=== PATIENT | male | born 1930 | race Caucasian/White ===

== ENCOUNTER 2017-02-14 17:01 | Emergency (ER) | payer MEDICARE ==
[2017-02-14 17:08] VITALS: BMI 34.4
[2017-02-14 17:11] VITALS: BP 127/83; PULSE 98; RESP 17; TEMP 98.9; O2SAT 97
[2017-02-14] MEDS ORDERED: Oxycodone/Acetaminophen 5/325 mg Tab PO STA (17:22)
--- NOTE | 2017-02-14 18:07 | ED PDOC ---
Arrival/HPI - General Chief Complaint: Upper Extremity Problem/Injury Time Seen by Provider: 02/14/17 17:12 Historian: Patient - History of Present Illness Narrative History of Present Illness (Text): 02/14/17 17:58 86yo male with history of multiple co morbidities present with complaint of right elbow pain with swelling since yesterday. states pain radiates to his forearm and upper arm. States pain is worse with flexion of elbow. He took Tylenol at home without relieve. He denies trauma, focal weakness, fever, chills , redness, any other complaint. Past Medical History - Provider Review Nursing Documentation Reviewed: Yes - Infectious Disease Hx of Infectious Diseases: None - Tetanus Immunization Tetanus Immunization: Unknown - Cardiac Hx Hypertension: Yes - Hematological/Oncological Hx Blood Transfusions: No Hx Blood Transfusion Reaction: No - Musculoskeletal/Rheumatological Hx Musculoskeletal Disorders: Yes - Psychiatric Hx Depression: No Hx Emotional Abuse: No Hx Physical Abuse: No Hx Substance Use: No - Past Surgical History Past Surgical History: No Previous - Anesthesia Hx Anesthesia Reactions: No Hx Malignant Hyperthermia: No - Suicidal Assessment Feels Threatened In Home Enviroment: No Family/Social History - Physician Review Nursing Documentation Reviewed: Yes Family/Social History: Unknown Family HX Smoking Status: Unknown If Ever Smoked Hx Alcohol Use: No Hx Substance Use: No Allergies/Home Meds Allergies/Adverse Reactions: Allergies No Known Allergies Allergy (Unverified 02/14/17 17:08) Home Medications: Home Meds Medication Instructions Recorded Confirmed Alprazolam 0.25 mg PO HS 02/09/13 03/01/14 Atorvastatin Calcium [Lipitor] 10 mg PO DAILY 02/09/13 03/01/14 Glimepiride [Amaryl] 2 mg PO DAILY 02/09/13 03/01/14 Lansoprazole [Prevacid] 15 mg PO DAILY 02/09/13 03/01/14 Metformin Hydrochloride [Metformin] 500 mg PO BID 02/09/13 03/01/14 Sotalol Hydrochloride [Sotalol] 40 mg PO BID 02/09/13 03/01/14 Warfarin [Coumadin] 2 mg PO DAILY 02/09/13 03/01/14 Hydrochlorothiazide/Valsarta 1 tab PO DAILY 03/01/14 03/01/14 [Diovan Hct 12.5 mg-80 mg] Review of Systems - Physician Review All systems were reviewed & negative as marked: Yes - Review of Systems Constitutional: Normal Eyes: Normal ENT: Normal Respiratory: Normal Cardiovascular: Normal Gastrointestinal: Normal Genitourinary Male: Normal Musculoskeletal: Arthralgias (right elbow) Skin: Normal Neurological: Normal Endocrine: Normal Hemo/Lymphatic: Normal Psychiatric: Normal Physical Exam Vital Signs Reviewed: Yes Vital Signs Temp Pulse Resp BP Pulse Ox 02/14/17 17:10 98.9 F 98 H 17 127/83 97 Temperature: Afebrile Blood Pressure: Normal Pulse: Regular Respiratory Rate: Normal Appearance: Positive for: Well-Appearing, Non-Toxic, Comfortable Pain Distress: None Mental Status: Positive for: Alert and Oriented X 3 - Systems Exam Head: Present: Atraumatic, Normocephalic Pupils: Present: PERRL Extroacular Muscles: Present: EOMI Conjunctiva: Present: Normal Mouth: Present: Moist Mucous Membranes Neck: Present: Normal Range of Motion Respiratory/Chest: Present: Clear to Auscultation, Good Air Exchange. No: Respiratory Distress, Accessory Muscle Use Cardiovascular: Present: Regular Rate and Rhythm, Normal S1, S2. No: Murmurs Abdomen: Present: Normal Bowel Sounds. No: Tenderness, Distention, Peritoneal Signs Back: Present: Normal Inspection Upper Extremity: Present: NORMAL PULSES, Tenderness (right elbow), Swelling ( Mild swelling of right elbow noted), Neurovascularly Intact, Capillary Refill < 2s. No: Cyanosis, Edema, Normal ROM (Limited with flexion secondary to pain), Erythema, Temperature Abnormalties, Deformity Lower Extremity: Present: Normal Inspection. No: Edema Neurological: Present: GCS=15, CN II-XII Intact, Speech Normal Skin: Present: Warm, Dry, Normal Color. No: Rashes Psychiatric: Present: Alert, Oriented x 3, Normal Insight, Normal Concentration Medical Decision Making ED Course and Treatment: 02/14/17 18:18 right elbow xray - Calcification noted. No acute fracture/dislocation Result was DW the pt. Arm was placed on a sling. Referred to ortho. Rx of Tramadol given. Advised TRT ED for any new or worsening symptoms - RAD Interpretation Radiology Orders: 02/14/17 17:21 ELBOW RIGHT 3 VIEWS ROUTINE [RAD] Stat - Medication Orders Current Medication Orders: Discontinued Medications Oxycodone/Acetaminophen (Percocet 5/325 Mg Tab) 1 tab PO STAT STA Stop: 02/14/17 17:23 Last Admin: 02/14/17 17:54 Dose: 1 tab Disposition/Present on Arrival - Present on Arrival Any Indicators Present on Arrival: No History of DVT/PE: No History of Uncontrolled Diabetes: No Urinary Catheter: No History of Decub. Ulcer: No History Surgical Site Infection Following: None - Disposition Have Diagnosis and Disposition been Completed?: Yes Diagnosis: Elbow pain Disposition: HOME/ ROUTINE Disposition Time: 18:20 Patient Plan: Discharge Condition: STABLE Discharge Instructions (ExitCare): Osteoarthritis (ED), Arthralgia (ED) Additional Instructions: Follow up with your doctor/orthopedist Return to ED for any new or worsening symptoms Prescriptions: oxyCODONE/Acetaminophen [Percocet 5/325 mg Tab] 1 ea PO Q6 #7 tab Referrals: Rom Cam MD [Primary Care Provider] - Follow up with primary Lesvia Jimenez MD [Staff Provider] - Follow up with primary
--- NOTE | 2017-02-15 08:22 | RAD ---
PROCEDURE: Radiographs of the right elbow. HISTORY: elbow pain COMPARISON: No prior. FINDINGS: BONES: Normal. No fracture. JOINTS: Normal. No osteoarthritis. SOFT TISSUES: Normal. JOINT EFFUSION: There is a joint effusion with elevation of the fat pads. OTHER FINDINGS: None. IMPRESSION: Joint effusion with no obvious fracture.
== END 2017-02-14 18:35 | disposition home or self-care (01) ==
LOC: ED 17:01
DX: M25.521 Pain in right elbow (principal)

== ENCOUNTER 2017-09-11 23:39 | Emergency (ER) | payer MEDICARE ==
[2017-09-11 23:39] VITALS: BMI 34.4
[2017-09-11 23:58] VITALS: BP 132/98; PULSE 82; RESP 18; TEMP 98; O2SAT 99
[2017-09-12] MEDS ORDERED: Petrolatum-Mineral Oil Oint (100gm) TOP STA (00:17)
--- NOTE | 2017-09-12 00:17 | ED PDOC ---
Arrival/HPI - General Chief Complaint: Abnormal Skin Integrity Time Seen by Provider: 09/12/17 00:13 Historian: Patient, Spouse - History of Present Illness Narrative History of Present Illness (Text): 09/12/17 00:14 This 86 yo male with pmh dm, htn, presents to this ED c/o rash x 3 days. Patient stated rash is pruritic. Denies other complains. Time/Duration: Other (3 days) Context: Home Past Medical History - Provider Review Nursing Documentation Reviewed: Yes - Infectious Disease Hx of Infectious Diseases: None - Tetanus Immunization Tetanus Immunization: Unknown - Cardiac Hx Hypertension: Yes - Hematological/Oncological Hx Blood Transfusions: No Hx Blood Transfusion Reaction: No - Musculoskeletal/Rheumatological Hx Musculoskeletal Disorders: Yes - Psychiatric Hx Depression: No Hx Emotional Abuse: No Hx Physical Abuse: No Hx Substance Use: No - Past Surgical History Past Surgical History: No Previous - Anesthesia Hx Anesthesia Reactions: No Hx Malignant Hyperthermia: No - Suicidal Assessment Feels Threatened In Home Enviroment: No Family/Social History - Physician Review Nursing Documentation Reviewed: Yes Family/Social History: Other (noncontributory) Smoking Status: Unknown If Ever Smoked Hx Alcohol Use: No Hx Substance Use: No Allergies/Home Meds Allergies/Adverse Reactions: Allergies No Known Allergies Allergy (Unverified 02/14/17 17:08) Home Medications: Home Meds Medication Instructions Recorded Confirmed Atorvastatin [Lipitor] 10 mg PO QPM 02/14/17 09/12/17 Fluticasone Propionate [Flovent 50 mcg IH 02/14/17 09/12/17 Diskus] Glimepiride [amaRYL] 2 mg PO BID 02/14/17 09/12/17 Ranitidine HCl [Zantac 300] 300 mg PO DAILY 02/14/17 09/12/17 Sotalol HCl [Sotalol AF] 40 mg PO BID 02/14/17 09/12/17 Temazepam [Restoril] 30 mg PO HS 02/14/17 09/12/17 Valsartan [Diovan] 80 mg PO QPM 02/14/17 09/12/17 Warfarin [Coumadin] 2 mg PO QPM 02/14/17 09/12/17 metFORMIN [glucOPHAGE] 500 mg PO BID 02/14/17 09/12/17 Review of Systems - Review of Systems Constitutional: Normal. absent: Fatigue, Weight Change, Fevers Eyes: Normal ENT: Normal Respiratory: Normal. absent: SOB, Cough Cardiovascular: Normal. absent: Chest Pain Gastrointestinal: Normal. absent: Abdominal Pain, Nausea, Vomiting Genitourinary Male: Normal Musculoskeletal: Normal Skin: Rash, Pruritis. absent: Skin Lesions, Laceration, Abscess, Ulcer, Cellulitis Neurological: Normal. absent: Headache, Dizziness Endocrine: Normal Hemo/Lymphatic: Normal Psychiatric: Normal Physical Exam Vital Signs Temp Pulse Resp BP Pulse Ox 09/11/17 23:56 98 F 82 18 132/98 H 99 Temperature: Afebrile Blood Pressure: Normal Pulse: Regular Respiratory Rate: Normal Appearance: Positive for: Well-Appearing, Non-Toxic, Comfortable Pain Distress: None Mental Status: Positive for: Alert and Oriented X 3 - Systems Exam Head: Present: Atraumatic, Normocephalic Pupils: Present: PERRL Extroacular Muscles: Present: EOMI Conjunctiva: Present: Normal Mouth: Present: Moist Mucous Membranes Neck: Present: Normal Range of Motion Respiratory/Chest: Present: Clear to Auscultation, Good Air Exchange. No: Respiratory Distress, Accessory Muscle Use, Wheezes, Retracting, Rhonchi Cardiovascular: Present: Regular Rate and Rhythm, Normal S1, S2. No: Murmurs Abdomen: Present: Tenderness, Normal Bowel Sounds. No: Distention, Peritoneal Signs Upper Extremity: Present: Normal Inspection, Normal ROM Lower Extremity: Present: Normal Inspection, Normal ROM Neurological: Present: GCS=15, CN II-XII Intact, Speech Normal, Motor Func Grossly Intact, Normal Sensory Function, Normal Cerebellar Funct, Gait Normal Skin: Present: Warm, Dry, Normal Color. No: Rashes Psychiatric: Present: Alert, Oriented x 3, Normal Insight Medical Decision Making ED Course and Treatment: 09/12/17 00:40 Re-evaluation. Patient feels better. Discussed results and plan with patient who expresses understanding. All questions answered and there is agreement with the plan to discharge home with instructions. Patient stable for discharge. Return if symptoms persist or worsen. Re-evaluation Time: 00:40 Reassessment Condition: Re-examined, Improved Disposition/Present on Arrival - Present on Arrival Any Indicators Present on Arrival: No History of DVT/PE: No History of Uncontrolled Diabetes: No Urinary Catheter: No History of Decub. Ulcer: No History Surgical Site Infection Following: None - Disposition Have Diagnosis and Disposition been Completed?: Yes Diagnosis: Rash and nonspecific skin eruption Disposition: HOME/ ROUTINE Disposition Time: 00:45 Patient Plan: Discharge Condition: GOOD Discharge Instructions (ExitCare): Acute Rash (ED) Additional Instructions: Call private doctor for follow up visit in 1-2 days. Take medication as instructed. Return to emergency if symptoms worsen. Take over the counter Zyrtec for itching once a day. Apply Aquaphor intensive healing ointment over you body once a day after shower. Return to emergency if rash worsen. Apply topical antibiotic on your neck rash 2 time a day Prescriptions: Nystatin/Triamcinolone Acetoni [Mycolog II OINT] 1 applic TOP TID #1 tube Referrals: Rom Cam MD [Primary Care Provider] - Follow up with primary
== END 2017-09-12 00:56 | disposition home or self-care (01) ==
LOC: ED 23:39
DX: R21 Rash and other nonspecific skin eruption (principal); E11.9 Type 2 diabetes mellitus without complications; I10 Essential (primary) hypertension
CPT/HCPCS: 96372; 99282; J1100

== ENCOUNTER 2018-04-30 14:47 | Emergency (ER) | payer MEDICARE ==
[2018-04-30 15:33] VITALS: BMI 39.6
--- NOTE | 2018-04-30 16:15 | ED PDOC ---
Arrival/HPI - General Chief Complaint: Trauma Time Seen by Provider: 04/30/18 15:05 Historian: Patient - History of Present Illness Narrative History of Present Illness (Text): 04/30/18 15:48 87 year old male, with past medical history of hypertension, hyperlipidemia, diabetes, and Atrial fibrillation on Coumadin, presents to the Emergency Department accompanied by complaining of left neck, left shoulder and lower back pain s/p trip and fall on Wednesday. Patient states he was walking to the bathroom at 3am Wednesday when he tripped over his lal and fell to the ground without any immediate injuries. Patient denies hitting his head or loss of consciousness. Upon finding patient on the floor half an hour later, called EMS for evaluation. Patient informed feeling fine at the time and signed refusal for medical attention to EMS. However, the next day , patient experienced left neck discomfort radiating to his left shoulder, and lower back discomfort and bruising. Patient informs taking Tylenol with mild improvement to symptoms. Patient additionally informs black stool ongoing for past 3 days prompting him to present to the Emergency Department for medical evaluation. Patient denies drinking alcohol or history of falls in the past. Patient denies any fever, chills, nausea, vomiting, diarrhea, abdominal pain, chest pain, shortness of breath or any other complaints. PMD: Dr. Mcmahon Time/Duration: < week (3am on Wednesday) Symptom Onset: Gradual Symptom Course: Unchanged Quality: Aching Activities at Onset: Light Context: Home Past Medical History - Provider Review Nursing Documentation Reviewed: Yes - Infectious Disease Hx of Infectious Diseases: None - Tetanus Immunization Tetanus Immunization: Unknown - Cardiac Hx Hypertension: Yes - Endocrine/Metabolic Hx Diabetes Mellitus Type 2: Yes - Hematological/Oncological Hx Blood Transfusions: No Hx Blood Transfusion Reaction: No - Musculoskeletal/Rheumatological Hx Musculoskeletal Disorders: Yes Hx Falls: Yes - Psychiatric Hx Depression: No Hx Emotional Abuse: No Hx Physical Abuse: No Hx Substance Use: No - Past Surgical History Past Surgical History: No Previous - Anesthesia Hx Anesthesia Reactions: No Hx Malignant Hyperthermia: No - Suicidal Assessment Feels Threatened In Home Enviroment: No Family/Social History - Physician Review Nursing Documentation Reviewed: Yes Family/Social History: No Known Family HX Smoking Status: Never Smoked Hx Alcohol Use: No Hx Substance Use: No Allergies/Home Meds Allergies/Adverse Reactions: Allergies No Known Allergies Allergy (Unverified 04/30/18 15:29) Home Medications: Home Meds Medication Instructions Recorded Confirmed Atorvastatin [Lipitor] 10 mg PO QPM 02/14/17 04/30/18 Fluticasone Propionate [Flovent 50 mcg IH HS 02/14/17 04/30/18 Diskus] Glimepiride [amaRYL] 2 mg PO BID 02/14/17 04/30/18 Ranitidine HCl [Zantac 300] 300 mg PO DAILY 02/14/17 04/30/18 Sotalol HCl [Sotalol AF] 40 mg PO BID 02/14/17 04/30/18 Temazepam [Restoril] 30 mg PO HS 02/14/17 04/30/18 Valsartan [Diovan] 80 mg PO QPM 02/14/17 04/30/18 Warfarin [Coumadin] 2 mg PO QPM 02/14/17 04/30/18 metFORMIN [glucOPHAGE] 500 mg PO BID 02/14/17 04/30/18 Review of Systems - Physician Review All systems were reviewed & negative as marked: Yes - Review of Systems Constitutional: absent: Fevers Respiratory: absent: SOB Cardiovascular: absent: Chest Pain Gastrointestinal: absent: Abdominal Pain, Diarrhea, Nausea, Vomiting Musculoskeletal: Other (left neck, shoulder and lower back discomfort ) Skin: Other (ecchymosis to lower back ) Neurological: absent: Headache, Dizziness Physical Exam Vital Signs Reviewed: Yes Vital Signs Temp Pulse Resp BP Pulse Ox 04/30/18 19:55 98.4 F 65 14 163/73 H 97 04/30/18 19:10 98.4 F 65 14 163/73 H 97 04/30/18 18:27 62 20 166/72 H 98 04/30/18 14:47 98.2 F 62 18 173/87 H 98 Temperature: Afebrile Blood Pressure: Hypertensive Pulse: Regular Respiratory Rate: Normal Appearance: Positive for: Well-Appearing, Non-Toxic, Comfortable Pain Distress: None Mental Status: Positive for: Alert and Oriented X 3 - Systems Exam Head: Present: Atraumatic, Normocephalic Pupils: Present: PERRL Extroacular Muscles: Present: EOMI Conjunctiva: Present: Normal Neck: Present: Normal Range of Motion Respiratory/Chest: Present: Clear to Auscultation, Good Air Exchange. No: Respiratory Distress, Accessory Muscle Use Cardiovascular: Present: Regular Rate and Rhythm, Normal S1, S2. No: Murmurs Abdomen: No: Tenderness, Distention, Peritoneal Signs Rectal: Present: Other (Guaiac negative) Back: Present: Normal Inspection. No: CVA Tenderness Upper Extremity: Present: Tenderness (left shoulder pinpoint tenderness), Neurovascularly Intact. No: Cyanosis, Edema Lower Extremity: Present: Normal Inspection, NORMAL PULSES, Normal ROM, Neurovascularly Intact. No: Edema Neurological: Present: GCS=15, CN II-XII Intact, Speech Normal, Motor Func Grossly Intact, Memory Normal Skin: Present: Warm, Dry, Normal Color, Other (left flank ecchymosis). No: Rashes Psychiatric: Present: Alert, Oriented x 3, Normal Insight, Normal Concentration Medical Decision Making ED Course and Treatment: 04/30/18 15:44 Impression: 87 year old male presents to the Emergency Department for left neck , left shoulder and lower back discomfort s/p fall. Marked ecchymosis to L flank. Differential Diagnosis included but are not limited to: fracture Plan: -- Blood type and screen -- CT of cervical spine -- Ct of head -- Ct of Abdomen/pelvis -- labs -- Chest X-ray -- left shoulder x-ray -- Reassess and disposition Prior Visits: Notes and results from previous visits were reviewed. Progress Notes: 04/30/18 16:17 Guaic Negative 19:[address] head unremarkable. Xray unremarkable. CT Neck unremarkable. 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 CK unremarkable. INR therapeutic. Given INR elevation from 1.7 to 2.0 as well as pt not ambulating well may need obs status. Appreciate consult w/ Pts Primary: Endorsed likely obs status: who will see in AM. Pt seeking to AMA 04/30/18 19:43 Patient states he is aware of his 5+ cm abdominal aortic aneurysm and is an old finding. Despite recommendation to stay overnight for observation, patient is refusing further medical care. The patient is choosing to leave against medical advice. I have personally explained to the patient that choosing to do so may result in permanent bodily harm or . I have discussed at great length that without further evaluation and monitoring there may be unforeseen circumstances and/or deterioration causing permanent bodily harm or as a result of their choice. The patient is alert, oriented, and shows the mental capacity to make clear decisions regarding the patients health care at this time. The patient continues to wish to leave against medical advice. In light of the patients decision to leave against medical advice, the importance of follow-up has been discussed. The patient has been advised that they should return to the emergency room immediately if they change their mind at any time, or if their condition begins to change or worsen in any way. 04/30/18 20:12 04/30/18 20:13 - Lab Interpretations Lab Results: 04/30/18 16:00 04/30/18 16:00 Lab Results 04/30/18 16:30: Blood Type Confirm O POSITIVE 04/30/18 16:00: Lactic Acid 2.0 04/30/18 16:00: Sodium 142, Potassium 4.2, Chloride 103, Carbon Dioxide 28, Anion Gap 16, BUN 48 H, Creatinine 2.0 H, Est GFR ( Amer) 38, Est GFR ( Non-Af Amer) 32, Random Glucose 173 H, Calcium 9.3, Phosphorus 2.4 L, Magnesium 2.0, Total Bilirubin 0.5, AST 29, ALT 36, Alkaline Phosphatase 91, Total Creatine Kinase 73, Total Protein 7.0, Albumin 3.7, Globulin 3.3, Albumin/ Globulin Ratio 1.1 04/30/18 16:00: PT 29.5 H, INR 2.54, APTT 39.3 H 04/30/18 16:00: WBC 8.7, RBC 4.08, Hgb 12.1 L D, Hct 36.7 L, MCV 90.0 D, MCH 29.7, MCHC 33.0, RDW 14.4, Plt Count 225, MPV 9.3, Gran % 76.6 H, Lymph % (Auto ) 9.7 L, [place] % (Auto) 10.3 H, Eos % (Auto) 3.2, Baso % (Auto) 0.2, Gran # 6.66 H, Lymph # (Auto) 0.8 L, [place] # (Auto) 0.9 H, Eos # (Auto) 0.3, Baso # (Auto) 0.02 04/30/18 16:00: Blood Type O POSITIVE, Antibody Screen Negative, BBK History Checked No verified bt - RAD Interpretation Radiology Orders: 04/30/18 15:46 CHEST TWO VIEWS (PA/LAT) [RAD] Stat 04/30/18 15:48 CERVICAL SPINE W/O CONTRAST [CT] Stat HEAD W/O CONTRAST [CT] Stat 04/30/18 15:50 SHOULDER LEFT [RAD] Stat 04/30/18 16:59 ABD & PELVIS W/O PO OR IV CONT [CT] Stat - Medication Orders Current Medication Orders: Discontinued Medications Acetaminophen (Tylenol 325mg Tab) 650 mg PO STAT STA Stop: 04/30/18 19:42 Last Admin: 04/30/18 19:42 Dose: 650 mg MAR Pain/Vitals Document 04/30/18 19:42 RG (Rec: 04/30/18 19:51 RG [facility] [id number]) Pain Reassessment Is This A Pain ReAssessment? Yes Sleep Is patient sleeping during reassessment? No Presence of Pain Presence of Pain Yes Pain Scale Used Pain Scale Used Numeric Location Left, Right or Bilateral Left Pain Location Body Site Neck Description Constant Intensity 5 Scale Used Numeric Pain Behavior Rubbing Site Facial Grimacing Oxycodone/Acetaminophen (Percocet 2.5/325 Mg Tab) 1 tab PO STAT STA Stop: 04/30/18 17:19 Last Admin: 04/30/18 17:25 Dose: 1 tab - Scribe Statement The provider has reviewed the documentation as recorded by the Scribe Roberta Lynn. All medical record entries made by the Scribe were at my direction and personally dictated by me. I have reviewed the chart and agree that the record accurately reflects my personal performance of the history, physical exam, medical decision making, and the department course for this patient. I have also personally directed, reviewed, and agree with the discharge instructions and disposition. Disposition/Present on Arrival - Present on Arrival Any Indicators Present on Arrival: No History of DVT/PE: No History of Uncontrolled Diabetes: No Urinary Catheter: No History of Decub. Ulcer: No History Surgical Site Infection Following: None - Disposition Have Diagnosis and Disposition been Completed?: Yes Diagnosis: Fall Disposition: AGAINST MEDICAL ADVICE Disposition Time: 19:17 Condition: FAIR Referrals: Rom Cam MD [Primary Care Provider] - Follow up with primary Forms: [employer] ([place])
[2018-04-30 16:47] LABS: BASO # 0.02 K/mm3 (0.0-2.0); BASO % 0.2 % (0.0-3.0); EOS # 0.3 (0.0-0.7); EOS % 3.2 % (1.5-5.0); GRAN # 6.66 (1.4-6.5); GRAN % 76.6 % (50.0-68.0); HEMOGLOBIN 12.1 g/dL (14.0-18.0); INR 2.54; LYMPH # 0.8 (1.2-3.4); LYMPH % 9.7 % (22.0-35.0); MEAN CORPUSCULAR HEMOGLOBIN 29.7 pg (25.0-35.0); MEAN PLATELET VOLUME 9.3 fl (7.0-11.0); MONO # 0.9 (0.1-0.6); MONO % 10.3 % (1.0-6.0); PARTIAL THROMBOPLASTIN TIME 39.3 Seconds (25.1-36.5); PROTHROMBIN TIME 29.5 SECONDS (9.4-12.5); RBC 4.08 10^6/uL (3.5-6.1); RED CELL DISTRIBUTION WIDTH 14.4 % (11.5-14.5); WHITE BLOOD COUNT 8.7 10^3/ul (4.5-11.0)
[2018-04-30 16:52] LABS: ALB/GLOB RATIO 1.1 (1.1-1.8); ALBUMIN 3.7 g/dL (3.0-4.8); CALCIUM 9.3 mg/dL (8.4-10.5)
[2018-04-30] MEDS ORDERED: Oxycodone/Acetaminophen 2.5/325 mg Tab PO STA (17:18)
--- NOTE | 2018-04-30 18:05 | CT ---
Date of service: 04/30/2018 PROCEDURE: CT HEAD WITHOUT CONTRAST. HISTORY: Status post fall in a patient on Coumadin. COMPARISON: None available. TECHNIQUE: Axial computed tomography images were obtained through the head/brain without intravenous contrast. Radiation dose: Total exam DLP = 951.7 mGy-cm. This CT exam was performed using one or more of the following dose reduction techniques: Automated exposure control, adjustment of the mA and/or kV according to patient size, and/or use of iterative reconstruction technique. FINDINGS: HEMORRHAGE: No acute parenchymal, subarachnoid or extra-axial hemorrhage. BRAIN: Mild moderate diffuse/confluent chronic periventricular white matter ischemic changes seen extending peripherally into the deep and subcortical white matter both cerebral hemispheres. There are also a few scattered chronic appearing bilateral basal nuclei lacunar type infarcts. . No obvious parenchymal nor extra-axial mass or collection seen on this noncontrast study. Moderate to fairly significant generalized volume loss. Vascular calcifications both carotid siphons and vertebral arteries. . VENTRICLES: No obstructive hydrocephalus. CALVARIUM: No acute calvarial fractures. Note made of 2 small soft tissue densities within the left posterior superior parietal and right parietal scalp on possibly representing inspissated sebaceous cysts. PARANASAL SINUSES: Right aspect of the frontal sinuses hypoplastic. The remaining paranasal sinuses are well-developed. No fluid levels seen to suggest acute hemorrhage or sinusitis. Minimal mucosal thickening both maxillary antra. . MASTOID AIR CELLS: Unremarkable as visualized. No inflammatory changes. OTHER FINDINGS: Changes of bilateral cataract surgery. IMPRESSION: No evidence of acute intracranial hemorrhage. Mild moderate chronic periventricular white matter ischemic Moderate to significant generalized volume loss.
[2018-04-30 19:28] VITALS: BP 163/73; PULSE 65; RESP 14; O2SAT 97
[2018-04-30 19:54] VITALS: TEMP 98.4
--- NOTE | 2018-05-01 11:45 | CT ---
Date of service: 04/30/2018 PROCEDURE: CT Cervical Spine without contrast HISTORY: Status post fall COMPARISON: No prior study available comparison TECHNIQUE: Contiguous helical/ transaxial computed tomography images were obtained of the cervical spine without the use of intravenous contrast. Coronal and sagittal reformatted images were created and reviewed. Radiation dose: Total exam DLP = 533.85 mGy-cm. This CT exam was performed using one or more of the following dose reduction techniques: Automated exposure control, adjustment of the mA and/or kV according to patient size, and/or use of iterative reconstruction technique. The. FINDINGS: VERTEBRAE: No acute compression fractures no retropulsed fragments. Vertebral bodies exhibit normal stature. There is mild straightening of the normal cervical lordosis however vertebral bodies otherwise exhibit normal alignment. Facets normally aligned. DISCS/SPINAL CANAL/NEURAL FORAMINA: Mild multilevel degenerative spondylosis. The there are calcification changes of the transverse ligament with degenerative spondylosis at the left over the dental articulation. Mild posterior disc space narrowing seen at the C2-C3 level with small broad-based bulge of the posterior annulus that results in some flattening of the ventral surface of the thecal sac and spinal cord. Central canal appears marginal to minimally narrowed. Uncovertebral facet arthropathy. Exit foramina are also slightly narrowed more so on the left side. The At the C3-C4 level, there is also disc space narrowing more so along the posterior disc margin with small central and bilateral osteophytic ridge disc complex that results in compression of the ventral surface of the thecal sac and spinal cord. Central canal is mildly stenotic. Uncovertebral and facet arthropathy changes are also present with resultant bilateral foraminal stenosis. At the C4-C5 level, there is disc space narrowing with small broad-based osteophytic ridge disc complex that is contiguous with hypertrophic uncovertebral joints. The facets also hypertrophic. Changes result in moderate central canal stenosis and cord compression as well as bilateral foraminal stenosis. At the C5-C6 level, there is also marked disc space narrowing with subchondral cystic changes and broad-based disc ridge complex contiguous with hypertrophic uncovertebral joints. Changes result in significant central canal stenosis and cord compression. Exit foramina stenotic as well. At the C6-C7 level, there appears to be degenerative fusion changes of the C6 C 7 segments. Broad-based disc ridge complex contiguous with hypertrophic uncovertebral joints. Changes result in moderate to significant central canal stenosis and cord compression. PARASPINAL SOFT TISSUES: Prevertebral and paraspinal soft tissues appear grossly unremarkable. OTHER FINDINGS: Minor biapical pleural thickening and minimal adjacent parenchymal scarring IMPRESSION: No fractures. Multilevel degenerative spondylosis with varying degrees of canal narrowing and cord compression and bilateral foraminal stenosis. See above discussion for additional details.
--- NOTE | 2018-05-01 12:05 | CT ---
Date of service: 04/30/2018 PROCEDURE: CT Abdomen and Pelvis without intravenous contrast HISTORY: Status post fall l in a patient on Coumadin with ecchymosis and elevated creatinine. COMPARISON: No prior study available comparison. TECHNIQUE: Contiguous helical/transaxial sections of the abdomen pelvis performed without oral or intravenous contrast material. Additional 2D sagittal and coronal reformats generated. Radiation dose: Total exam DLP = 1081.73 mGy-cm. This CT exam was performed using one or more of the following dose reduction techniques: Automated exposure control, adjustment of the mA and/or kV according to patient size, and/or use of iterative reconstruction technique. . FINDINGS: LOWER THORAX: Heart is enlarged. No significant pericardial effusion. There is a small hiatal hernia. There is a small right-sided effusion with minimal right basilar atelectasis. The in addition, there are some very minor passive/dependent type atelectatic changes both lower lung bases. The note of what appears represent some minimal calcified pleural plaque left posterior sulcus which could be postinflammatory as no other additional calcified pleural plaques are identified. LIVER: Unenhanced liver exhibits normal size and attenuation pattern without mass collection or calcification. GALLBLADDER AND BILE DUCTS: Gallbladder physiologically distended. No evidence of intraluminal gallbladder calculi. PANCREAS: Pancreas appears atrophic and fatty replaced. . SPLEEN: Spleen exhibits normal size and attenuation pattern without mass collection or calcification. ADRENALS: No adrenal lesions. KIDNEYS AND URETERS: Kidneys are diminutive in size with cortical volume loss. Mild infiltration changes in the perinephric fat are also present. Correlation with urinalysis to exclude UTI. VASCULATURE: There is an infrarenal abdominal aortic aneurysm that measures nearly 5.4 cm in greatest dimension measured on axial series 3, image number 86. . Aneurysm extends nearly 7 cm in CC dimension. BOWEL: Evaluation of the bowel is limited due to the lack of oral contrast material. Stomach is incompletely distended. Visualized loops of small bowel exhibit normal contour and caliber. No evidence acute mechanical small bowel obstruction. Multiple colonic diverticula seen along the descending and sigmoid colon however no definitive radiographic evidence of acute diverticulitis. APPENDIX: The appendix go unremarkable best seen on axial image number [id number]. PERITONEUM: Unremarkable. No free fluid. No free air. Small fat containing umbilical hernia. . Small fat containing bilateral inguinal hernias are present. LYMPH NODES: Unremarkable. No enlarged lymph nodes. BLADDER: Urinary bladder incompletely distended. No intraluminal urinary bladder calculi. REPRODUCTIVE: Measures prostate gland measures approximately 4.2 cm in transverse dimension. BONES: Mild multilevel degenerative spondylosis of the lumbar and visualized lower thoracic spine. There are no acute compression fractures no retropulsed fragments. Pelvis and both hips intact. OTHER FINDINGS: Prostate gland measures approximately 4.76 cm in transverse dimension. Prostatic calcifications are present. IMPRESSION: No evidence of acute intra abdominal posttraumatic sequela. Cardiomegaly with small right-sided effusion and minor right basilar atelectasis. There is an approximately 5.4 cm infrarenal abdominal aortic aneurysm as detailed above. Diverticulosis without radiographic evidence of acute diverticulitis. The kidneys are mildly atrophic with cortical volume loss. There are also infiltration changes seen in the perinephric fat; rule out UTI.
--- NOTE | 2018-05-01 12:27 | RAD ---
Date of service: 04/30/2018 HISTORY: fall COMPARISON: No prior TECHNIQUE: Chest PA and lateral FINDINGS: LUNGS: No mild right basilar atelectasis PLEURA: No. Slight blunting left CP angle could be due to some mild pleural thickening. . No pneumothorax apparent. CARDIOVASCULAR: Cardiomegaly. OSSEOUS STRUCTURES: No significant abnormalities. VISUALIZED UPPER ABDOMEN: Normal. OTHER FINDINGS: None. IMPRESSION: Mild right basilar atelectasis. Slight blunting left CP angle.
--- NOTE | 2018-05-01 12:29 | RAD ---
Date of service: 04/30/2018 PROCEDURE: Radiographs of the Left Shoulder HISTORY: fall COMPARISON: No prior. FINDINGS: BONES: No evidence of acute displaced fracture nor dislocation. The osseous structures appear intact. 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 SOFT TISSUES: Small calcification within the soft tissues adjacent to the greater tuberosity may represent calcific tendinitis OTHER FINDINGS: None. IMPRESSION: No acute fractures. Mild DJD left acromioclavicular and glenohumeral joints. . Findings also suggest calcific tendinitis R.
--- NOTE | 2018-05-01 16:22 | CARD ---
APPROVED REPORT Date of service: 04/30/2018 EKG Measurement Heart [id number] 134P [id number] <Conclusion> Poor data quality, interpretation may be adversely affected Normal sinus rhythm Left axis deviation Cannot rule out Anterior infarct, age undetermined Abnormal ECG
== END 2018-04-30 19:55 | disposition left against medical advice (07) ==
LOC: ED 14:47
DX: Z04.3 Encounter for examination and observation following other accident (principal); W01.0XXA Fall on same level from slipping, tripping and stumbling without subsequent striking against object, initial encounter; Y92.008 Other place in unspecified non-institutional (private) residence as the place of occurrence of the external cause; I10 Essential (primary) hypertension; E78.5 Hyperlipidemia, unspecified; E11.9 Type 2 diabetes mellitus without complications; I48.91 Unspecified atrial fibrillation; Z79.01 Long term (current) use of anticoagulants

== ENCOUNTER 2018-12-26 01:11 | Inpatient (IN) | payer MEDICARE ==
[2018-12-26 01:11] VITALS: BMI 39.6
--- NOTE | 2018-12-26 02:04 | ED PDOC ---
Arrival/HPI - General Chief Complaint: Weakness/Neurological Deficit Time Seen by Provider: 12/26/18 01:17 Historian: Patient - History of Present Illness Narrative History of Present Illness (Text): 12/26/18 02:04 James Baker is an 88 year old male former smoker, whose past medical history includes hypertension, hyperlipidemia, diabetes, and atrial fibrillation, who presents brought in by EMS accompanied by complaining of generalized weakness and dizziness. Patient states tonight when walking to the bathroom, he began feeling increasingly weak, dizzy. notes patient has been weak with a cough for the past week, for which he was seen by his PMD and placed on Promethazine and antibiotics. Patient also complaining of some difficulty breathing. Patient denies any fever, chills, chest pain, nausea, vomiting, heraclio rrhea, urinary symptoms, back pain, neck pain, headache, or any other complaints. PMD: Dr. Danyel Cam Symptom Onset: Gradual Symptom Course: Unchanged Activities at Onset: Light Context: Home Past Medical History - Provider Review Nursing Documentation Reviewed: Yes - Infectious Disease Hx of Infectious Diseases: None - Tetanus Immunization Tetanus Immunization: Unknown - Cardiac Hx Cardiac Disorders: Yes Hx Hypertension: Yes - Endocrine/Metabolic Hx Endocrine Disorders: Yes Hx Diabetes Mellitus Type 2: Yes - Hematological/Oncological Hx Blood Transfusions: No Hx Blood Transfusion Reaction: No - Musculoskeletal/Rheumatological Hx Musculoskeletal Disorders: Yes Hx Falls: Yes - Psychiatric Hx Depression: No Hx Emotional Abuse: No Hx Physical Abuse: No Hx Substance Use: No - Past Surgical History Past Surgical History: No Previous - Anesthesia Hx Anesthesia Reactions: No Hx Malignant Hyperthermia: No - Suicidal Assessment Feels Threatened In Home Enviroment: No Family/Social History - Physician Review Nursing Documentation Reviewed: Yes Family/Social History: Unknown Family HX Smoking Status: Never Smoked Hx Alcohol Use: No Hx Substance Use: No Allergies/Home Meds Allergies/Adverse Reactions: Allergies No Known Allergies Allergy (Unverified 04/30/18 15:29) Home Medications: Home Meds Medication Instructions Recorded Confirmed Atorvastatin [Lipitor] 10 mg PO QPM 02/14/17 12/26/18 Fluticasone Propionate [Flovent 50 mcg IH HS 02/14/17 12/26/18 Diskus] Glimepiride [amaRYL] 2 mg PO BID 02/14/17 12/26/18 Ranitidine HCl [Zantac 300] 300 mg PO DAILY 02/14/17 12/26/18 Sotalol HCl [Sotalol AF] 40 mg PO BID 02/14/17 12/26/18 Temazepam [Restoril] 30 mg PO HS 02/14/17 12/26/18 Valsartan [Diovan] 80 mg PO QPM 02/14/17 12/26/18 Warfarin [Coumadin] 2 mg PO QPM 02/14/17 12/26/18 metFORMIN [glucOPHAGE] 500 mg PO BID 02/14/17 12/26/18 Amoxicillin/Clavulanate [Augmentin 500 mg PO BID 12/26/18 12/26/18 250 MG-125 MG] Promethazine [Phenergan Syrup] 6.25 mg PO Q6 PRN 12/26/18 12/26/18 Review of Systems - Physician Review All systems were reviewed & negative as marked: Yes - Review of Systems Constitutional: Other (+generalized weakness). absent: Fevers Eyes: Normal ENT: Normal Respiratory: SOB, Cough Cardiovascular: Normal Gastrointestinal: Normal. absent: Abdominal Pain, Diarrhea, Nausea, Vomiting Genitourinary Male: Normal. absent: Dysuria, Frequency, Hematuria, Urinary Output Changes Musculoskeletal: Normal. absent: Back Pain, Neck Pain Skin: Normal. absent: Rash Neurological: Dizziness. absent: Headache Endocrine: Normal Hemo/Lymphatic: Normal Psychiatric: Normal Physical Exam Vital Signs Reviewed: Yes Vital Signs Temp Pulse Resp BP Pulse Ox 12/26/18 01:28 98.5 F 66 18 111/51 L 94 L Temperature: Afebrile Blood Pressure: Normal Pulse: Regular Respiratory Rate: Normal Appearance: Positive for: Well-Appearing, Non-Toxic, Comfortable Pain Distress: None Mental Status: Positive for: Alert and Oriented X 3 - Systems Exam Head: Present: Atraumatic, Normocephalic Pupils: Present: PERRL Extroacular Muscles: Present: EOMI Conjunctiva: Present: Normal Mouth: Present: Moist Mucous Membranes Neck: Present: Normal Range of Motion Respiratory/Chest: Present: Good Air Exchange, Rhonchi. No: Respiratory Distress, Accessory Muscle Use Cardiovascular: Present: Regular Rate and Rhythm, Normal S1, S2. No: Murmurs Abdomen: No: Tenderness, Distention, Peritoneal Signs Back: Present: Normal Inspection Upper Extremity: Present: Normal Inspection. No: Cyanosis, Edema Lower Extremity: Present: Normal Inspection. No: Edema Neurological: Present: GCS=15, CN II-XII Intact, Speech Normal Skin: Present: Warm, Dry, Normal Color. No: Rashes Psychiatric: Present: Alert, Oriented x 3, Normal Insight, Normal Concentration Medical Decision Making ED Course and Treatment: 12/26/18 02:04 Impression: 88 year old male complaining of dizziness, generalized weakness, cough. Plan: -- CT Head w/o contrast -- EKG -- Chest X-ray -- Labs, cardiac enzymes, BNP -- Reassess and disposition Prior Visits: Notes and results from previous visits were reviewed. Progress Notes: Reviewed EKG, NSR at 65 bpm. LAD. No acute changes. 12/26/18 03:54 CT HEad: Mild chronic mucosal inflammatory changes of the paranasal sinuses. There is normal configuration of sella turcica. There are no intra or extra- axial collections. There is no mass effect or midline shift. There is no evidence of hematoma formation. No hydrocephalus is present. The ventricles are symmetrical. No abnormal calcifications are present. There is diffuse age-appropriate cerebellar and cerebral atrophy with proportionally dilated ventricles and cortical sulci. There are bilateral periventricular and subcortical white matter hypolucencies compatible with mild chronic microvascular disease. Otherwise, no significant focal abnormalities are seen either in the posterior fossa or supratentorial compartment. IMPRESSION: 1. Age-appropriate cerebellar and cerebral atrophy. 2. Mild chronic microvascular disease. 3. No evidence of acute intracranial pathology. Electronically signed on Dec 26, 2018 3:39:40 AM EDT by: Tosin Long M.D., Certified by JOSE, MSK, Neuroradiology 12/26/18 04:[address] Cam, who is aware and agrees with plan. Accepts pt in to her service. Pt admitted to telemetry for CHF. - Lab Interpretations I have reviewed the lab results: Yes - RAD Interpretation Polygraph Technician: ED Physician - EKG Interpretation Interpreted by ED Physician: Yes Type: 12 lead EKG - Scribe Statement The provider has reviewed the documentation as recorded by the Okibmariela Smith Provider Scribe Attestation: All medical record entries made by the Scribe were at my direction and personally dictated by me. I have reviewed the chart and agree that the record accurately reflects my personal performance of the history, physical exam, medical decision making, and the department course for this patient. I have also personally directed, reviewed, and agree with the discharge instructions and disposition. Disposition/Present on Arrival - Present on Arrival Any Indicators Present on Arrival: No History of DVT/PE: No History of Uncontrolled Diabetes: No Urinary Catheter: No History of Decub. Ulcer: No History Surgical Site Infection Following: None - Disposition Have Diagnosis and Disposition been Completed?: Yes Diagnosis: CHF (congestive heart failure) Disposition: HOSPITALIZED Disposition Time: 04:11 Patient Problems: Current Active Problems Problem Status Onset CHF (congestive heart failure) Acute Condition: STABLE
[2018-12-26 02:51] LABS: HEMOGLOBIN 11.3 g/dL (14.0-18.0); MEAN CORPUSCULAR HEMOGLOBIN 29.6 pg (25.0-35.0); MEAN CORPUSCULAR HGB CONC 31.7 g/dl (31.0-37.0); MEAN PLATELET VOLUME 9.5 fl (7.0-11.0); RBC 3.82 10^6/uL (3.5-6.1); WHITE BLOOD COUNT 12.3 10^3/uL (4.5-11.0)
[2018-12-26 02:52] LABS: ALBUMIN 3.2 g/dL (3.0-4.8); CALCIUM 8.4 mg/dL (8.4-10.5)
[2018-12-26 02:55] LABS: INR 1.59; PROTHROMBIN TIME 17.7 SECONDS (9.4-12.5)
[2018-12-26 02:57] LABS: MEAN CELL VOLUME 93.2 fl (80.0-105.0)
[2018-12-26 03:04] LABS: TROPONIN I 0.05 ng/mL
[2018-12-26] MEDS ORDERED: cefTRIAXone 1 gm 1 GM/100 ML BAG IV STA (04:12)
[2018-12-26] MEDS ORDERED: Azithromycin 500MG/NS 250ml 500 MG/250 ML BAG IV STA (04:12)
[2018-12-26 05:36] LABS: URINE BILIRUBIN NEGATIVE (NEGATIVE); URINE BLOOD TRACE-INTACT (NEGATIVE); URINE GLUCOSE (UA) NEGATIVE (NEGATIVE); URINE LEUKOCYTE ESTERASE NEGATIVE Leu/uL (NEGATIVE); URINE PROTEIN 100 mg/dL (<30 mg/dL); URINE UROBILINOGEN 0.2 E.U./dL (<1 E.U./dL)
[2018-12-26 05:37] LABS: URINE APPEARANCE CLEAR (CLEAR); URINE COLOR YELLOW (YELLOW)
[2018-12-26 05:52] LABS: URINE RBC 0 - 2 /hpf (0-2); URINE WBC 0 - 2 /hpf (0-6)
--- NOTE | 2018-12-26 09:27 | CT ---
Date of service: 12/26/2018 PROCEDURE: CT HEAD WITHOUT CONTRAST. HISTORY: near syncope COMPARISON: None available. TECHNIQUE: Axial computed tomography images were obtained through the head/brain without intravenous contrast. Radiation dose: Total exam DLP = 949.06 mGy-cm. This CT exam was performed using one or more of the following dose reduction techniques: Automated exposure control, adjustment of the mA and/or kV according to patient size, and/or use of iterative reconstruction technique. FINDINGS: HEMORRHAGE: No intracranial hemorrhage. BRAIN: No mass effect or edema. Atrophy and chronic microvascular changes. No acute findings VENTRICLES: Unremarkable. No hydrocephalus. CALVARIUM: Unremarkable. PARANASAL SINUSES: Unremarkable as visualized. No significant inflammatory changes. MASTOID AIR CELLS: Unremarkable as visualized. No inflammatory changes. OTHER FINDINGS: The report concurs with the preliminary [facility] report IMPRESSION: No acute intracranial findings
--- NOTE | 2018-12-26 10:01 | RAD ---
Date of service: 12/26/2018 PROCEDURE: CHEST RADIOGRAPH, 1 VIEW HISTORY: sob COMPARISON: 04/30/2018 FINDINGS: LUNGS: Mild peribronchial thickening PLEURA: No pneumothorax or pleural fluid seen. CARDIOVASCULAR: No aortic atherosclerotic calcification present. Moderate cardiomegaly OSSEOUS STRUCTURES: No significant abnormalities. VISUALIZED UPPER ABDOMEN: Normal. OTHER FINDINGS: None. IMPRESSION: No active disease.
--- NOTE | 2018-12-26 14:16 | CP.PCM.APN ---
Subjective - Date & Time of Evaluation Date of Evaluation: 12/26/18 Time of Evaluation: 11:00 - Subjective Subjective: pt seen and examine at bedside , pt asleep in NAD , easily arousable, reports left knee pain Review of Systems - Musculoskeletal Additional comments: left knee pain Objective - Vital Signs/Intake and Output Vital Signs (last 24 hours): Temp Pulse Resp BP Pulse Ox 98.9 F 66 18 128/65 96 12/26/18 11:59 12/26/18 11:59 12/26/18 11:59 12/26/18 11:59 12/26/18 06:00 Intake and Output: 12/26/18 12/26/18 06:59 18:59 Output Total 300 Balance -300 - Labs Labs: 12/26/18 02:15 12/26/18 02:15 PT 17.7 SECONDS (9.4-12.5) H 12/26/18 02:15 INR 1.59 12/26/18 02:15 APTT 30.0 Seconds (26.9-38.3) 12/26/18 02:15 - Constitutional Appears: No Acute Distress - Eye Exam Eye Exam: Normal appearance - Respiratory Exam Respiratory Exam: Decreased Breath Sounds, NORMAL BREATHING PATTERN - Cardiovascular Exam Cardiovascular Exam: +S1, +S2 - GI/Abdominal Exam GI & Abdominal Exam: Distended, Soft, Normal Bowel Sounds - Neurological Exam Neurological Exam: Alert, Awake, Oriented x3 - Skin Skin Exam: Dry, Intact Assessment and Plan - Assessment and Plan (Free Text) Plan: ITS Impressions Head CT 12/26/18 02:16 IMPRESSION: No acute intracranial findings Chest X-Ray 12/26/18 02:18 IMPRESSION: No active disease. 88 yr old male with pmh sig for htn, exsmoker, dm now admitted with c/o dizziness, generalized weakenss and cough undergoing further evaluation. pt with sarabia cultures and cardiology consultation s/p dose of antibiotics and dose of laxis iv. pt noted with mild leukocytosis, will follow am cbc . pt also noted with elevated bun/cr , will monitor i/o , bnp noted at 1130 pt may need echo- will await cardiology recs cara Paige
--- NOTE | 2018-12-26 16:12 | CARD ---
APPROVED REPORT Date of service: 12/26/2018 EKG Measurement Heart [id number] [place] 158P [id number] <Conclusion> Normal sinus rhythm Left axis deviation Minimal voltage criteria for LVH, may be normal variant Abnormal ECG
[2018-12-26] MEDS: Nystatin 100,000 Units/gm Topical Pow(15 gm) TOP SCH (18:15)
--- NOTE | 2018-12-26 21:58 | CON ---
DATE OF CONSULTATION: 12/26/2018 REQUESTING PHYSICIAN: Dr. Cam. REASON FOR CONSULTATION: Lightheadedness. HISTORY: This is an 88-year-old man well-known to me with a history of coronary artery disease, chronic atrial fibrillation and mild to moderate aortic stenosis, who was brought to the emergency room via ambulance yesterday. He states that he was sitting in bed and fell to the floor. He describes as sliding out of bed with no loss of consciousness. This was witnessed by his . He was able to get up. He was brought to the emergency room for evaluation. He has had a chronic dizziness and has had a neurologic workup in the past. He has chronic atrial fibrillation and is on Coumadin therapy. Of note, he is in sinus rhythm today. He does have chronic renal insufficiency as well with a prior baseline creatinine of 1.8. His creatinine on admission was 2.6. He denies any recent chest pain. His activities are extremely limited due to arthritis. An echocardiogram performed in August revealed mildly dilated left atrium with normal LV size and systolic function, mild concentric LVH, mild to moderate aortic stenosis, and mild mitral and tricuspid regurgitation. He recently saw Dr. Robb Cam for congestion and heavy cough. He was placed on antibiotic therapy and cough suppressant. PAST MEDICAL HISTORY: His past history is notable for the problems mentioned above. He does have a history of hypertension, hyperlipidemia, non-insulin diabetes mellitus, severe arthritis, a moderate abdominal aortic aneurysm measuring 4.6 cm when last checked as well as a history of inactive gout, prior cataract surgery, and colonic polyps. MEDICATIONS: His medications at home include Lipitor 10 mg daily, Flovent, glimepiride 2 mg b.i.d., Zantac 300 mg daily, sotalol 40 mg b.i.d., Restoril, Diovan 80 mg daily, warfarin, metformin 500 mg b.i.d., Phenergan, and Augmentin. SOCIAL HISTORY: He is a former smoker having quit many years ago. He is and lives with his . He is retired. FAMILY HISTORY: Both parents are from premature heart disease. One son at the age of 21 in a motor vehicle accident. REVIEW OF SYSTEMS: A 10-point review of systems is otherwise unremarkable. PHYSICAL EXAMINATION: GENERAL: He is a very elderly man, who appears comfortable at the present time. VITAL SIGNS: His blood pressure is 124/70 with a pulse of 68 and sinus, respirations are 14. He is afebrile. HEENT: Normocephalic, atraumatic. NECK: Supple. No JVD noted. Carotid upstrokes were diminished and delayed. CHEST: Does reveal a few scattered rhonchi. HEART: PMI displaced laterally with a systolic murmur present at the base radiating to the carotids. ABDOMEN: Soft, nontender with normoactive bowel sounds. The abdomen is also obese. EXTREMITIES: No clubbing, cyanosis or edema. SKIN: Warm and dry. PSYCHIATRIC: Normal mood and affect. NEUROLOGIC: Alert and oriented x3. No gross motor or sensory deficits; however, his mobility is somewhat slow. DIAGNOSTIC DATA: Potassium 7, white count 12.3, hemoglobin and hematocrit are 11.3 and 35.6 with a platelet count of 159,000. INR is 1.59, potassium 5.2, BUN and creatinine are 57 and 2.6. BMP 1130, troponin 0.05. Electrocardiogram reveals sinus rhythm with left axis deviation and middle voltage criteria for LVH. Chest x-ray reveals a large cardiac silhouette with mildly increased bronchial markings. No clear effusions or pulmonary vascular congestion noted. IMPRESSION: 1. Recent dizziness, unclear if this is exacerbation of his chronic problem or due to new cause. 2. Aortic stenosis, which is of a mild to moderate severity, would not likely contribute to his present symptomatology. 3. Worsening renal insufficiency with possible component of volume depletion. Does not appear to be in overt heart failure at this time as had previously been noted. 4. Coronary artery disease, stable at present. 5. Paroxysmal atrial fibrillation, currently in sinus rhythm. RECOMMENDATIONS: His current cardiac medications will be resumed. Warfarin will be administered this evening. An INR will be checked in the morning. As his echocardiogram was performed recently in the office, so this is not needed to be repeated at the present time. Continue to follow and make further recommendations as appropriate. Niels Redmond MD
--- NOTE | 2018-12-27 03:52 | HP ---
DATE OF EXAM: 12/26/2018 CHIEF COMPLAINT: Fell, could not get up. HISTORY OF PRESENT ILLNESS: This is an 88-year-old man who is regularly seen in the office by Dr. 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 Niels Redmond, who was in his usual state of health, doing relatively well when he had another fall at home, landing on his buttocks and was unable to get up. He fell 2 weeks ago at home as well as several times in the pas 2 months. He saw orthopedist, Dr. Orellana 3 weeks ago for injection to the right knee. He called for family and friends who were unable to get him up, because of their age and because of his state, so ambulance was called. In the emergency room, he reported a bit of a cough. His white count was elevated. There was concern for pneumonia. 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 He is unable to ambulate, c/o pain in the right knee. PAST MEDICAL HISTORY: Significant for atrial fibrillation, coronary artery disease with PCTA and stent placement many years ago, abdominal aortic aneurysm repair only a few years ago, and diabetes. SOCIAL HISTORY: He no longer smokes, but there is a history of smoking in the past. He occasionally drinks alcohol, wine at dinner. He is . PAST SURGICAL HISTORY: He had a colonoscopy in the past. ALLERGIES: HE HAS NO KNOWN ALLERGIES TO MEDICATIONS. HOME MEDICATIONS: Include topical warfarin, glimepiride, meclizine, Glucophage, ranitidine, indomethacin, Flonase, Celebrex, Lipitor, Singulair and metformin. REVIEW OF SYSTEMS: Negative but for pains of arthritis and difficulty getting up on this date. PHYSICAL EXAMINATION GENERAL: The patient was seen this Wednesday in room 272, bed 2 with his family at the bedside. He is awake and alert, speaks with a bit of an accent, but is easy to understand and clearly understands me. HEAD AND NECK: Unremarkable. Conjunctivae are pink. Mucous membranes are moist. Neck is supple without masses. LUNGS: Show good aeration right and left. HEART: Regular and not tachycardic. ABDOMEN: Soft. Moderately overweight. EXTREMITIES: Show no edema. There is DJD present LABORATORY DATA: Review of labs shows potassium to be slightly high at 5.2. Chest x-ray by my view shows no evidence of edema and lungs actually are quite clear. Later the report was available, confirming no active disease and he is afebrile. IMPRESSION: 1. Multiple falls with increasing difficulty getting up, now unable to stand, walk. 2. Cough, perhaps mild bronchitis for upper respiratory infection. 3. Elevated BNP, but no evidence of congestive heart failure on history, exam or x-ray. 4. History of coronary artery disease. 5. Status post abdominal aortic aneurysm repair. 6. Diabetes with CKD. 7. Renal Insufficiency acute on chronic. PLAN: The patient will be admitted to overnight observation. We used some nystatin powder for the groin rash on the right side. X-ray of his left knee as he is complaining that it is bothering him. Arrange for physical therapy, out of bed, and the possibility of Transistional Care versus home tomorrow. Juwan Cam MD MTDNery
[2018-12-27 07:15] LABS: INR 2.07; PROTHROMBIN TIME 23.4 SECONDS (9.4-12.5)
[2018-12-27 07:35] LABS: ALB/GLOB RATIO 1.1 (1.1-1.8); ALBUMIN 3.6 g/dL (3.0-4.8); CALCIUM 8.8 mg/dL (8.4-10.5)
--- NOTE | 2018-12-27 08:59 | RAD ---
Date of service: 12/26/2018 PROCEDURE: Left Knee Radiographs. HISTORY: Pain. COMPARISON: None. TECHNIQUE: 2 views obtained. FINDINGS: BONES: Normal. No fracture. JOINTS: There is joint space narrowing in the medial compartment. There is meniscal calcification in the lateral compartment JOINT EFFUSION: None. OTHER FINDINGS: None. IMPRESSION: There is joint space narrowing in the medial compartment. There is meniscal calcification in the lateral compartment
[2018-12-27] MEDS: Nystatin 100,000 Units/gm Topical Pow(15 gm) TOP SCH (11:00)
[2018-12-27] MEDS ORDERED: Bupivacaine 0.5% Inj(30mL) IJ ONE (14:14)
[2018-12-27] MEDS ORDERED: MethylPREDNISolone Depo 40 mg/ml Inj IM ONE (14:14)
[2018-12-27 14:30] LABS: FLUID TYPE SYNOVIAL FLUID
[2018-12-27 14:51] LABS: SF GROSS APPEARANCE BLOODY (CLEAR)
--- NOTE | 2018-12-27 15:24 | PN ---
DATE: 12/27/2018 SUBJECTIVE: The patient is seen sitting in bed on telemetry. He apparently had some confusion overnight, but appears back to his baseline at this time. He denies any dizziness and he states that he is feeling somewhat better. His is at the bedside. His current medications include Betapace 40 mg b.i.d., warfarin, Lipitor and nystatin. His oral hypoglycemic agents have not been restarted as of yet. PHYSICAL EXAMINATION: GENERAL: He is a very elderly man, who appears comfortable at rest. VITAL SIGNS: Blood pressure 146/76 with pulse of 70 and sinus, respirations of 14. He is afebrile. HEENT: No JVD. CHEST: Few scattered rhonchi heard. HEART: PMI displaced laterally with a mid-peaking systolic murmur at the base. ABDOMEN: Soft and nontender. Obese. Normoactive bowel sounds. EXTREMITIES: No edema. DIAGNOSTIC DATA: Potassium 4.5, BUN and creatinine 54 and 2.6. Glucose is 161, INR 2.07. IMPRESSION: 1. Recent fall, appears to be unrelated to loss of consciousness. 2. Yujy-ov-gsninora aortic stenosis, stable at present. 3. Renal insufficiency, appears unchanged. 4. Coronary artery disease, clinically stable. 5. Paroxysmal atrial fibrillation, currently in sinus rhythm. RECOMMENDATIONS: His current medications should continue for now. If he begins to have more frequent falls, the long-term safety of anticoagulation will need to be addressed; however, in the interim, I think this can be continued for now. His overnight confusion is likely secondary to sundowning. His renal insufficiency appears stable. From a cardiac standpoint, no further workup is planned at this time. He is stable for discharge once medically cleared. Outpatient followup will be continued. Niels Redmond MD BA
--- NOTE | 2018-12-27 21:42 | CON ---
DATE: 12/27/2018 ORTHOPEDIC CONSULT HISTORY OF PRESENT ILLNESS: The patient came in on the service of Dr. Cam and I got the consult today. He came into the hospital on 12/26/2018 with left knee pain. He slipped and fell at home, and I saw him today. X-ray shows mild osteoarthritis of left knee with decreased medial joint space and calcified lateral meniscus of his left knee, and he has an effusion, so we aspirated 60 mL of serosanguineous fluid left knee, but he did fall on his knees, so it might be partially traumatic, but there is no fracture.the calcified lat meniscus is from the pseudo gout(cppd) 0 PLAN: We are going to send the fluid for cell count, culture and crystals and injected the left knee with Depo-Medrol and Marcaine after I irrigated out with some normal saline. Hopefully, he will feel much better and he could participate in therapy with much less left knee pain which will be for ambulation, would walk and do strengthening exercises to minimize his chance of falling again. I will follow with him while he is in the hospital. Rom Squires DO BA
--- NOTE | 2018-12-28 00:23 | PN ---
DATE: 12/27/2018 SUBJECTIVE: The patient was seen this Wednesday morning in room 272, bed 2, with the son at the bedside. He is awake, alert, and in good spirits. Speaks with an accent, but understands me and the son is there as well. He is complaining of some continued left knee pain, did a little bit of activity with physical therapy. He was able to walk to the door of the room, but the son reports he was quite unsteady on his feet. Remainder of the physical examination is unchanged. ASSESSMENT AND PLAN: We will ask Dr. Squires to evaluate for orthopedic opinion on the left knee. The patient has already been seen by Dr. Orellana and the left knee injected 1 or 2 months ago. We will follow up with chest x-ray and CBC and look for transfer to Transitional Care after three nights in the acute care facility where we can continue some additional physical therapy and conditioning, especially in view of the patient's multiple falls at home prior to hurting himself badly enough to warrant this admission. Juwan Cam MD MTDNery
[2018-12-28 06:42] LABS: INR 3.18; PROTHROMBIN TIME 35.9 SECONDS (9.4-12.5)
[2018-12-28] MEDS: Nystatin 100,000 Units/gm Topical Pow(15 gm) TOP SCH (10:57)
--- NOTE | 2018-12-28 14:43 | PN ---
DATE: 12/28/2018 SUBJECTIVE: The patient is seen sitting in chair in telemetry. He is more comfortable today. He apparently remains steady on his feet, however. He has had no lightheadedness. Telemetry monitoring continues to show sinus rhythm with no significant abnormalities. CURRENT MEDICATIONS: Include Betapace 40 mg b.i.d., warfarin, Lipitor. OBJECTIVE: GENERAL: He is an elderly man, who appears comfortable at rest. VITAL SIGNS: Blood pressure 170/70 with a pulse of 66 in sinus, respirations 14. He is afebrile. HEENT: No JVD. CHEST: Few scattered rhonchi. HEART: PMI displaced laterally with systolic murmur at the base. ABDOMEN: Soft, nontender, obese with normoactive bowel sounds. EXTREMITIES: No edema. LABORATORY DATA: Glucose 165. INR is 3.18. IMPRESSION: 1. Recent fall. No clear evidence of syncope. 2. Glsw-nw-jdeicwnf aortic stenosis, stable at present. 3. Chronic renal insufficiency. 4. Stable coronary artery disease. 5. Paroxysmal atrial fibrillation, currently in sinus rhythm. 6. History of diabetes, currently not on oral agents. 7. Hypertension, suboptimal control. RECOMMENDATIONS: His current cardiac medications will continue for now. His losartan will be resumed. Plan is being made for transfer to transitional care unit. His oral hypoglycemic agents should be resumed as well. I will be happy to follow along as needed. Telemetry monitoring can be discontinued at this time. Niels Redmond MD
[2018-12-28] MEDS: guaiFENesin-Codeine 100-10mg/5ml Syrup (5 ml) UD PO PRN ×2 (18:00→21:56)
[2018-12-28] MEDS: Amoxicillin-Clav 500-125 mg Tab PO SCH (18:01)
--- NOTE | 2018-12-28 18:13 | PN ---
DATE: 12/28/2018 LOCATION: Room 272, Bed 2. SUBJECTIVE: He is feeling much better with his left knee. 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 White count of his left knee was 17,[address] anything that might be infection, which it did not appear to be, so we will follow him for left knee pain which has improved from the pseudogout and mild osteoarthritis with decreased joint space of the medial thigh. Rom Squires DO MTDD
--- NOTE | 2018-12-28 21:56 | PN ---
DATE: 12/28/2018 DAILY PROGRESS NOTE SUBJECTIVE: The patient is an 88-year-old male whom I had the pleasure of knowing for several years. He has a past medical history positive for atrial fibrillation, coronary artery disease, status post PTCA many years ago, and history of abdominal aortic aneurysm, which was repaired few years ago. He is a noninsulin-dependent diabetic who suffered a mechanical fall in his bathroom, landing on his buttocks. He developed some pain in the lower back over time, therefore presented to the emergency room where he was evaluated and admitted. The patient was noted to have a mild elevation in BNP and some questionable markings on his chest x-ray showed the admitting diagnosis was for congestive heart failure. When seen the patient's family is at bedside, his son, his , and other family members. OBJECTIVE: GENERAL: The patient is sitting up in a chair. He is feeling well. LUNGS: Clear to auscultation and percussion. HEART: Regular. ABDOMEN: Soft and nontender. EXTREMITIES: Free of cyanosis, clubbing, or edema. VITAL SIGNS: Stable. ASSESSMENT AND PLAN: He is feeling well. He is looking forward tomorrow for transfer to the Transitional Care Unit for some physical therapy. Of note, when the patient was seen last week in an office visit, he had been complaining of a cough and chest congestion. At that time, he was prescribed Augmentin antibiotic and Phenergan with Codeine cough syrup. When seen today, the patient feels that he did not complete the full course of antibiotics because of this hospitalization and he feels the cough returning, therefore I will resume Augmentin 500 mg twice a day with food for the next 3 days and resume guaifenesin with codeine to help suppress his cough. The patient is to be reevaluated in the morning. Rom Cam MD
[2018-12-29 05:50] VITALS: O2SAT 97
[2018-12-29] MEDS: Amoxicillin-Clav 500-125 mg Tab PO SCH (09:48)
[2018-12-29] MEDS: Nystatin 100,000 Units/gm Topical Pow(15 gm) TOP SCH (09:49)
[2018-12-29] MEDS: guaiFENesin-Codeine 100-10mg/5ml Syrup (5 ml) UD PO PRN (09:49)
--- NOTE | 2018-12-29 10:15 | PN ---
DATE: 12/29/2018 SUBJECTIVE: The patient is seen lying in bed on 2R. He is currently comfortable. He did some ambulating with teacher's assistant yesterday. Plans are being made for transfer to Transitional Care Unit. He denies any worsening dizziness. CURRENT MEDICATIONS: Include Augmentin, Betapace 40 mg twice a day, Coumadin which is on hold for an elevated INR yesterday, Cozaar 50 mg daily, and Lipitor 10 mg daily. OBJECTIVE: GENERAL: He is an very elderly man, who is comfortable at the present time. VITAL SIGNS: Blood pressure 146/70 with a pulse of 56 in regular, respiration is 14. He is afebrile. HEENT: No JVD. CHEST: Few scattered rhonchi heard. HEART: Systolic murmur present at the base radiating to the carotids. ABDOMEN: Soft, nontender, and obese with normoactive bowel sounds. EXTREMITIES: No edema. DIAGNOSTIC DATA: No blood work pending from the morning. INR pending from this morning. IMPRESSION: 1. Recent fall at home. No clear evidence of loss of consciousness. 2. Dlcl-ia-xeohgscj aortic stenosis, clinically stable. 3. Chronic renal insufficiency. 4. Stable coronary artery disease. 5. Paroxysmal atrial fibrillation. 6. History of hypertension and diabetes. RECOMMENDATIONS: From cardiac standpoint, he appears stable at this time. His current medications should continue. His INR is pending and will be adjusted as needed. Coumadin dose will be adjusted as needed. Transfer to Transitional Care Unit appears to be reasonable at this time. I will be happy to follow along as needed. Niels Redmond MD
[2018-12-29 11:10] LABS: PROTHROMBIN TIME 52.7 SECONDS (9.4-12.5)
[2018-12-29 11:12] LABS: INR 4.66
[2018-12-29 12:23] VITALS: BP 179/72; PULSE 57; RESP 19; TEMP 98.1
--- NOTE | 2018-12-30 01:11 | DS ---
HISTORY OF PRESENT ILLNESS: This is an 88-year-old man known to my office, usually seen by Dr. Rom Cam, and his pacu rn Dr. Niels Redmond. Last two weeks prior to coming to the hospital, he fell several times. He saw an orthopedist, . approximately 3 weeks for injection in the right knee. On day of admission, he fell and called the family and friends, because he was unable to get up. In the emergency room, he reported the cough. His white was evaluated. He reports an exertional dyspnea, BNP was evaluated and so he was admitted for possible pneumonia, possible CHF, multiple falls at home. PAST MEDICAL HISTORY: Significant for atrial fibrillation, coronary artery disease with PCTA and stent placement and aortic aneurysm repair few years ago and diabetes. COURSE OF HOSPITAL STAY: The patient was seen by Cardiology and orthopedic consultants. He improved clinically with some physical therapy. Initially, he may need more physical therapy than our TCU can offer, but was later found to be an ideal candidate and that his progress in ambulation after an injection into the knee was quite impressive. He was discharged today on 12/29/2018 for Transitional Care Unit at [facility]. We will continue follow him there. FINAL DISCHARGE DIAGNOSES: Multiple falls at home, pain in the knee, osteoarthritis, diabetes, atrial fibrillation, coronary artery disease, status post aortic aneurysm repair several years ago, history of tobacco use in the distant past. Juwan Cam MD
== END 2018-12-29 14:48 | DRG 565 ==
LOC: ED 01:11 → ERH 04:15 → 2RSO 05:40 → 2RNO 12-27 08:49 → 2RSO 12-27 08:58
PROVIDERS: ADMIT Internal Medicine; ATTEND Internal Medicine
PROC: 0S9D3ZZ Drainage of Left Knee Joint, Percutaneous Approach (ICD-10-PCS; principal; 2018-12-27)
PROC: 3E0U33Z Introduction of Anti-inflammatory into Joints, Percutaneous Approach (ICD-10-PCS; 2018-12-27)
PROC: 3E0U3BZ Introduction of Anesthetic Agent into Joints, Percutaneous Approach (ICD-10-PCS; 2018-12-27)
DX: M25.462 Effusion, left knee (principal); I13.0 Hypertensive heart and chronic kidney disease with heart failure and stage 1 through stage 4 chronic kidney disease, or unspecified chronic kidney disease; M17.12 Unilateral primary osteoarthritis, left knee; R42 Dizziness and giddiness; Z87.891 Personal history of nicotine dependence; R29.6 Repeated falls; I25.10 Atherosclerotic heart disease of native coronary artery without angina pectoris; I48.2 Chronic atrial fibrillation; I08.3 Combined rheumatic disorders of mitral, aortic and tricuspid valves; E78.5 Hyperlipidemia, unspecified; M19.90 Unspecified osteoarthritis, unspecified site; E11.22 Type 2 diabetes mellitus with diabetic chronic kidney disease; R05 Cough; M25.561 Pain in right knee; R26.9 Unspecified abnormalities of gait and mobility; N18.9 Chronic kidney disease, unspecified; I50.9 Heart failure, unspecified; I48.0 Paroxysmal atrial fibrillation; M11.262 Other chondrocalcinosis, left knee; I71.4 Abdominal aortic aneurysm, without rupture; W01.0XXA Fall on same level from slipping, tripping and stumbling without subsequent striking against object, initial encounter; Y92.002 Bathroom of unspecified non-institutional (private) residence as the place of occurrence of the external cause; Z79.01 Long term (current) use of anticoagulants; Z86.79 Personal history of other diseases of the circulatory system; Z98.61 Coronary angioplasty status

== ENCOUNTER 2018-12-29 14:48 | Inpatient (IN) | payer OTHER, MEDICARE ==
[2018-12-29 15:27] VITALS: BMI 39.1
[2018-12-29] MEDS ORDERED: guaiFENesin-Codeine 100-10mg/5ml Syrup (5 ml) UD PO PRN (15:54)
[2018-12-29] MEDS: Amoxicillin-Clav 500-125 mg Tab PO SCH (17:15)
[2018-12-29] MEDS ORDERED: Influenza Vaccine 60 mcg/0.5 mL SYR (4YR UP) IM ONE (18:31)
[2018-12-29] MEDS ORDERED: Pneumococcal 23-Valent Vaccine IM ONE (18:31)
[2018-12-30 07:00] LABS: BASO # 0.03 K/mm3 (0.0-2.0); BASO % 0.3 % (0.0-3.0); EOS # 0.3 (0.0-0.7); EOS % 3.3 % (1.5-5.0); HEMOGLOBIN 11.3 g/dL (14.0-18.0); LYMPH # 1.3 (1.2-3.4); LYMPH % 12.7 % (22.0-35.0); MEAN CELL VOLUME 90.6 fl (80.0-105.0); MEAN CORPUSCULAR HEMOGLOBIN 28.8 pg (25.0-35.0); MEAN CORPUSCULAR HGB CONC 31.7 g/dl (31.0-37.0); MEAN PLATELET VOLUME 9.2 fl (7.0-11.0); MONO # 0.8 (0.1-0.6); MONO % 7.6 % (1.0-6.0); RBC 3.93 10^6/uL (3.5-6.1); RED CELL DISTRIBUTION WIDTH 13.2 % (11.5-14.5); WHITE BLOOD COUNT 10.2 10^3/uL (4.5-11.0)
[2018-12-30 07:09] LABS: ALBUMIN 3.3 g/dL (3.0-4.8); CALCIUM 8.6 mg/dL (8.4-10.5)
[2018-12-30 07:25] LABS: PROTHROMBIN TIME 58.4 SECONDS (9.4-12.5)
[2018-12-30 07:27] LABS: INR 5.17
[2018-12-30] MEDS: Amoxicillin-Clav 500-125 mg Tab PO SCH ×3 (08:14→17:28)
--- NOTE | 2018-12-30 08:30 | HP ---
HISTORY OF PRESENT ILLNESS: This is an 88-year-old man who comes to transitional care unit after brief hospital stay for deconditioning, exercise, physical therapy prior to discharge home. The patient was admitted to the acute care facility at [facility] after multiple falls at home. He was followed by orthopedist as well as his automobile radiator mechanic. He was initially concerned on his chest x-ray for CHF and his elevated white count and history of cough, but these proved to be relatively minor symptoms, which subsided. PAST MEDICAL HISTORY: Significant for atrial fibrillation, coronary artery disease with PCTA and stent placement many years ago and an abdominal aneurysm repair only few years ago. He has diabetes for several years. SOCIAL HISTORY: He does not smoke, although there is a history of smoking in the past. He occasionally drinks alcohol, wine at dinner. He is with grandchildren. PAST SURGICAL HISTORY: Significant only for colonoscopy in the past. ALLERGY: HE HAS NO KNOWN ALLERGIES TO MEDICATIONS. HOME MEDICATIONS: Include Warfarin, glimepiride, meclizine, Glucophage, ranitidine, indomethacin, Flonase, Celebrex, Lipitor, Singulair and metformin. REVIEW OF SYSTEMS: On multiple points is negative except for his arthritis pains and most notable to the arthritis in the left knee, but that has markedly improved since his injection by Dr. Squires. PHYSICAL EXAMINATION GENERAL: The patient was in bed, comfortable, ready for transfer to his room in transitional care. HEENT: Conjunctiva pink, mucous membranes moist. NECK: Supple. LUNGS: Show good aeration, right and left. HEART: Regular, not tachycardic. ABDOMEN: Mild to moderately overweight. EXTREMITIES: Show no edema. IMPRESSION: 1. Multiple falls at home. 2. Deconditioning. 3. Coronary artery disease. 4. Diabetes. 5. Status post aortic aneurysm repair. 6. Atrial fibrillation. PLAN: The patient will come to the Transitional Care Unit for exercise, physical therapy and conditioning. Juwan Cam MD
[2018-12-30] MEDS: Nystatin 100,000 Units/gm Topical Pow(15 gm) TOP SCH (10:25)
--- NOTE | 2018-12-30 12:49 | CON ---
DATE: 12/30/2018 HISTORY OF PRESENT ILLNESS: An 88-year-old male in room 327, bed 1, presented to TCU for rehabilitation for his osteoarthritis of the left knee where he has been found to have calcified meniscus of the lateral side and osteoarthritis of the medial joint line with decreased joint space, it was injected with Depo-Medrol and Marcaine on 12/27/2018, with very good results. He still have been benefit at the cortisone shot, we are going to send him for the physical therapy for strengthening exercise of lower legs and ambulation with a walker and following to make sure he does not get another attach of gouty arthritis of the pseudogout or osteoarthritis pain. He is not a candidate right now for total knee because of the inability to follow with instruction of the riskey surgery of total knee replacment and there would be a high chance of infection for this patient, so watch him closely and treat him conservatively with ambulation with the walker and periodic injections either of cortisone or hyalgen. FINAL DIAGNOSES: Osteoarthritis of the left knee associated with decreased joint space of the medial side and pseudogout of the knee with calcified meniscus laterally. Rom Squires DO BA
[2018-12-31 08:09] LABS: INR 1.12; PROTHROMBIN TIME 12.7 SECONDS (9.4-12.5)
[2018-12-31] MEDS: Amoxicillin-Clav 500-125 mg Tab PO SCH (09:52)
[2018-12-31] MEDS: Nystatin 100,000 Units/gm Topical Pow(15 gm) TOP SCH (09:57)
[2018-12-31 13:11] VITALS: RESP 18; TEMP 98.2
--- NOTE | 2018-12-31 14:10 | PN ---
DATE: 12/31/2018 SUBJECTIVE: The patient is seen sitting in chair on the transitional care unit. He is comfortable at the present time. He did some ambulation yesterday. He denies any chest pain or dyspnea. He has no lightheadedness at the present time. His current medications include Augmentin, sotalol 40 mg b.i.d., Cozaar 50 mg daily, Lipitor and cough syrup. PHYSICAL EXAMINATION: GENERAL: He is an obese elderly man. VITAL SIGNS: His blood pressure is 130/70, pulse is 60, respirations are 14, and he is afebrile. HEENT: No JVD. CHEST: Few scattered rhonchi heard. HEART: Rhythm is irregular. Systolic murmur is present at the base radiating to the carotids. ABDOMEN: Soft, obese, nontender. Normoactive bowel sounds. EXTREMITIES: No edema. DIAGNOSTIC DATA: Potassium 4.6, BUN and creatinine 59 and 2.5. White count 10.2. Hemoglobin and hematocrit are 11.3 and 35.6 with platelet count 271,000. INR yesterday was 5.17, repeat today is 1.12. IMPRESSION: 1. Recent unsteady gait. No clear cardiac cause. 2. Significant deconditioning and advanced arthritis. 3. Coronary artery disease, stable at present. 4. Moderate aortic stenosis, remains asymptomatic. 5. Paroxysmal atrial fibrillation, now with normalized INR. 6. History of diabetes. RECOMMENDATIONS: With current management should continue increased activity as able or advised. If his INR is truly normalized, the resumption of the Coumadin therapy at this time would be appropriate. Continue conservative cardiac management as planned. I will follow along as needed. Niels Redmond MD MTDD
[2018-12-31] MEDS ORDERED: [UNRECOGNIZED DRUG - OTHER] PO PRN (15:08)
[2018-12-31 15:30] LABS: PROTHROMBIN TIME 60.6 SECONDS (9.4-12.5)
[2018-12-31 15:32] LABS: INR 5.46
[2018-12-31 17:26] VITALS: O2SAT 98
[2019-01-01 08:42] LABS: PROTHROMBIN TIME 54.3 SECONDS (9.4-12.5)
[2019-01-01 08:44] LABS: INR 4.86
[2019-01-01] MEDS: Nystatin 100,000 Units/gm Topical Pow(15 gm) TOP SCH (09:27)
[2019-01-01] MEDS ORDERED: Phytonadione 10 mg/ml Inj (Adult) SC ONE (09:42)
[2019-01-01 10:04] VITALS: BP 133/72; PULSE 80
[2019-01-01] MEDS ORDERED: Promethazine 6.25 MG/5 ML CUP PO PRN (10:23)
[2019-01-01] MEDS ORDERED: Non Formulary Medication (Valsartan [Diovan] 80 MG) PO SCH (18:00)
[2019-01-01] MEDS ORDERED: Non Formulary Medication (Fluticasone Propionate [Flovent Diskus] 50 MCG) IH SCH (22:00)
[2019-01-01] MEDS ORDERED: Non Formulary Medication (Temazepam [Restoril] 30 MG) PO SCH (22:00)
[2019-01-02] MEDS ORDERED: Non Formulary Medication (Ranitidine Hcl [Zantac] 300 MG) PO SCH (10:00)
== END 2019-01-01 12:20 | disposition home or self-care (01) | DRG 93 ==
LOC: TRCU 14:48
PROVIDERS: ADMIT Internal Medicine; ATTEND Internal Medicine
PROC: F07Z9FZ Gait Training/Functional Ambulation Treatment using Assistive, Adaptive, Supportive or Protective Equipment (ICD-10-PCS; principal; 2018-12-31)
PROC: F07Z8ZZ Transfer Training Treatment (ICD-10-PCS; 2018-12-31)
PROC: F07L6YZ Therapeutic Exercise Treatment of Musculoskeletal System - Lower Back / Lower Extremity using Other Equipment (ICD-10-PCS; 2018-12-31)
PROC: F08Z2FZ Grooming/Personal Hygiene Treatment using Assistive, Adaptive, Supportive or Protective Equipment (ICD-10-PCS; 2018-12-31)
PROC: F08Z1FZ Dressing Techniques Treatment using Assistive, Adaptive, Supportive or Protective Equipment (ICD-10-PCS; 2018-12-31)
PROC: F08Z0FZ Bathing/Showering Techniques Treatment using Assistive, Adaptive, Supportive or Protective Equipment (ICD-10-PCS; 2018-12-31)
DX: R26.81 Unsteadiness on feet (principal); M17.12 Unilateral primary osteoarthritis, left knee; M11.262 Other chondrocalcinosis, left knee; E11.9 Type 2 diabetes mellitus without complications; I25.10 Atherosclerotic heart disease of native coronary artery without angina pectoris; I35.0 Nonrheumatic aortic (valve) stenosis; I48.0 Paroxysmal atrial fibrillation; R29.6 Repeated falls; Z87.891 Personal history of nicotine dependence; Z79.84 Long term (current) use of oral hypoglycemic drugs; Z79.01 Long term (current) use of anticoagulants